=== PATIENT | male | born 1995 | race Caucasian/White ===

== ENCOUNTER → 2017-08-04 | Outpatient (CLI) | payer MEDICAID ==
[2017-08-04 10:52] LABS: Basophils # (A) 0.1 k/uL (0-0.2); Basophils % (A) 1 %; Eosinophils # (A) 0.3 k/uL (0-0.7); Eosinophils % (A) 3 %; HCT 45.1 % (39.0-53.0); HGB 14.8 gm/dL (13.0-17.5); Lymphocytes # (A) 3.2 k/uL (1.0-4.8); Lymphocytes % (A) 34 %; MCH 28.9 pg (25.0-35.0); MCHC 32.8 g/dL (31.0-37.0); MCV 88.1 fL (80.0-100.0); Mean Platelet Volume 7.9; Monocytes # (A) 0.8 k/uL (0-1.0); Monocytes % (A) 8 %; Neutrophils # (A) 4.7 k/uL (1.3-7.7); Neutrophils % (A) 51 %; Platelet Count 344 k/uL (150-450); RBC 5.12 m/uL (4.30-5.90); RDW 14.4 % (11.5-15.5); WBC 9.2 k/uL (3.8-10.6)
[2017-08-04 11:08] LABS: ALT 64 U/L (21-72); AST 34 U/L (17-59); Albumin 4.3 g/dL (3.5-5.0); Alkaline Phosphatase 54 U/L (38-126); Anion Gap 11 mmol/L; Blood Urea Nitrogen 14 mg/dL (9-20); Calcium 9.7 mg/dL (8.4-10.2); Carbon Dioxide 29 mmol/L (22-30); Chloride 106 mmol/L (98-107); Cholesterol 124 mg/dL (<200); Glucose 106 mg/dL (74-99); HDL Cholesterol 39 mg/dL (40-60); LDL Cholesterol,Calculated 69 mg/dL (0-99); Potassium 4.5 mmol/L (3.5-5.1); Sodium 146 mmol/L (137-145); Total Bilirubin 0.4 mg/dL (0.2-1.3); Triglycerides 82 mg/dL (<150)
[2017-08-04 11:24] LABS: T4, Free (Free Thyroxine) 1.46 ng/dL (0.78-2.19)
== END | disposition home or self-care (01) ==
LOC: LABWHC1 10:27
PROVIDERS: ATTEND Internal Medicine
DX: E78.5 Hyperlipidemia, unspecified (principal)
CPT/HCPCS: 36415; 80053; 80061; 84439; 84443; 85025

== ENCOUNTER → 2019-02-16 | Outpatient (CLI) | payer MEDICAID ==
--- NOTE | 2019-02-16 14:29 | CONS ---
CONSULTATION REASON FOR EVALUATION: Sleep apnea. 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 The patient was screen positive for sleep apnea based on A DOT evaluation. DOC examiner sent him to my office for sleep apnea evaluation. The patient works 2 jobs. 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 He goes to be late at around 2 am, wakes up at 7 am in the morning. He feels tired and occasional sleepy. He has never fallen asleep behind the wheel. Never been involved in a motor vehicle accident. His [place] score is at 13. He used to weigh 280 pounds, he has gained a significant amount of weight and was up to 330 and currently is down to 309. Denies having any nocturia no choking or gasping sensation during sleep, no restlessness in the lower extremities. He wakes up tired in the morning. He is a nose breather. PAST MEDICAL HISTORY: Obesity, headaches and bronchial asthma. PAST SURGICAL HISTORY: Includes left knee arthroscopy, hernia repair and tonsillectomy. DRUG ALLERGIES: Not known. OUTPATIENT MEDICATION LIST: Includes Topamax. SOCIAL HISTORY: The patient is a nonsmoker. No history of alcohol. No drugs. FAMILY HISTORY: Father is none, mother has asthma. REVIEW OF SYSTEMS: A 14-point review of system was done. Attention negative unexpected above history of present illness. No insomnia no nocturia no grinding of the teeth. No dry mouth. No anxiety or panic attacks, no palpitation, no heartburn, no restlessness in the lower extremities. no sleep talking. no sweating. no anxiety. no claustrophobia, no sexual dysfunction, no depression. PHYSICAL EXAMINATION: BP is 133/78, pulse 100, respirations 16, temperature 98.4 saturation 97% on room air. Weight is 309 height, 5 feet 11 inches, neck size 18 inches. GENERAL APPEARANCE: Calm, comfortable. HEAD: Atraumatic, normocephalic. NECK: Supple. There is no JVD. No goiter or neck mass. Mallampati class IV. LUNGS: Clear to auscultation. HEART: Sounds regular rate and rhythm. Normal S1, S2. No S3. No murmurs. ABDOMEN: Soft, nontender. No organomegaly. EXTREMITIES: No edema. No cyanosis or clubbing. NEUROLOGIC: Alert and oriented x3. No focal neurological deficits. PSYCHIATRIC: Negative for anxiety or depression. IMPRESSION: 1. Loud snoring. 2. Chronic fatigue and some mild degree of sleepiness, [place] score 13. 3. Obesity with a body mass index of 42.4. 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 5. History of bronchial asthma. 6. History of headache. PLAN: 1. Encourage weight loss. 2. 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 He will need a polysomnogram to rule out obstructive sleep apnea. Especially, if the patient has the typical anatomic features. Will continue to follow and make further recommendations depending on the sleep study results and will treat accordingly, if needed. MMODL / IJN: [id number] /
== END | disposition home or self-care (01) ==
LOC: SLEEP 13:22
PROVIDERS: ATTEND Internal Medicine Critical Care Medicine
DX: R06.83 Snoring (principal); R53.82 Chronic fatigue, unspecified; E66.9 Obesity, unspecified; Z68.41 Body mass index [BMI] 40.0-44.9, adult; Z87.09 Personal history of other diseases of the respiratory system; Z86.69 Personal history of other diseases of the nervous system and sense organs; Z79.899 Other long term (current) drug therapy
CPT/HCPCS: 99211

== ENCOUNTER → 2019-03-02 | Outpatient (CLI) | payer MEDICAID ==
--- NOTE | 2019-03-02 13:47 | MR ---
EXAMINATION TYPE: MR knee RT wo con DATE OF EXAM: 03/02/2019 COMPARISON: NONE HISTORY: Pain in R knee and medial meniscal tear prior. TECHNIQUE: Multiplanar, multisequence images of the knee is performed without IV contrast. FINDINGS: MEDIAL MENISCUS: Anterior and posterior horns are intact without tear. LATERAL MENISCUS: Anterior and posterior horns are intact without tear. CRUCIATE LIGAMENTS: The anterior and posterior cruciate ligaments are intact and unremarkable. COLLATERAL LIGAMENTS: The medial collateral ligament and lateral collateral ligament complex are inta ct and unremarkable. EXTENSOR MECHANISM: Visualized quadriceps and patellar tendons are intact. EFFUSION: No significant suprapatellar joint effusion. POPLITEAL CYST: No popliteal/wilkerson cyst. TRICOMPARTMENT SPACES: Tricompartment joint spaces are preserved. No significant spurring is seen. CARTILAGE: Tricompartment articular cartilage is maintained. BONE MARROW SIGNAL: No focal abnormal marrow signal is appreciated. OTHER: No additional significant abnormality is appreciated. IMPRESSION: No meniscal or ligamentous tear is seen. Unremarkable study.
== END | disposition home or self-care (01) ==
LOC: RADMRIMAIN 06:55
PROVIDERS: ATTEND Orthopaedic Surgery
DX: S83.241A Other tear of medial meniscus, current injury, right knee, initial encounter (principal)

== ENCOUNTER → 2019-05-11 | Outpatient (CLI) | payer MEDICAID ==
--- NOTE | 2019-05-11 18:53 | PN ---
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 The patient was diagnosed having obstructive sleep apnea, and based on his sleep study the patient was found to have an AHI of 13 and the disease was worse during REM. His AHI during REM was 73. He also demonstrated mild nocturnal oxygen desaturation. His sleep study showed increased sleep efficiency on the order of 99%, indicating insufficient sleep syndrome. He is obese and currently is using his CPAP unit. He got his CPAP unit 29 days ago and he has used the CPAP only / days. He has achieved more than 4 hours less than 50% of the time. He is averaging around 4.4 hours of CPAP use per night. While being used, the AHI is down to 0.8. He feels improved. He feels better, especially on the nights that he has been able to maintain the treatment. He tells me that the tubing and mask connection are loose, and on several occasions this got disconnected, affecting his ability to maintain the treatment. For that reason he is looking for a different mask which is more solid and does not get disconnected overnight. He is committed to the treatment. I asked him to come back in 2 weeks' time to have re-evaluation, hoping that within 2 weeks' time he should be able to achieve compliancy. REVIEW OF SYSTEMS: Fourteen-point review of systems was done. The patient is feeling better; less somnolent and sleepy during the day. [place] score is down to 1. PHYSICAL EXAMINATION: VITAL SIGNS: BP is 128/77, pulse 99, respirations 14. Temperature is 97.5. [place] score is down to 1. Saturation 98% on room air. Weight is 310. GENERAL APPEARANCE: Calm, comfortable. HEAD: Atraumatic, normocephalic. NECK: Supple. There is no JVD. No goiter or neck mass. Mallampati class IV. LUNGS: Clear to auscultation. HEART: Heart sounds are regular rate and rhythm. Normal S1, S2. No S3, S4. No murmurs. ABDOMEN: Soft, nontender. No organomegaly. EXTREMITIES: No edema. No cyanosis or clubbing. NEUROLOGIC: Awake and alert. There are no focal neurological deficits. PSYCHIATRIC: Negative for anxiety or depression. IMPRESSION: 1. Symptomatic obstructive sleep apnea. Based on the patient's sleep study, the patient has a component of mild obstructive sleep apnea with an AHI of 13, worse during REM sleep. The patient is currently undergoing CPAP therapy at a pressure of 12 cm of water. Compliance has not been achieved yet. 2. Hypersomnia, improved significantly while on CPAP therapy. The patient's [place] score is down to 1. 3. Morbid obesity with a body mass index of 43. 4. Chronic hypersomnia and sleepiness. 5. Chronic headaches. 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 PLAN: 1. Will offer the patient a new Simplus full-face mask that hopefully will not get disconnected overnight. I also gave him another sample of AirVasoGenix F20 full-face mask medium size, and the patient will try both and let me know if this is something he would like to use in the future. 2. Encourage weight loss. 3. I think he will achieve compliance within the 2 weeks. He was counseled in that regard, and the patient was asked to come back to see me in 2 weeks' time to decide if he is compliant and if he is successfully treated. At that point, his paperwork will be filled for him regarding his DOT certification. MMANDREWL / JAMESN: [id number] /
== END | disposition home or self-care (01) ==
LOC: SLEEP 16:14
PROVIDERS: ATTEND Internal Medicine Critical Care Medicine
DX: G47.33 Obstructive sleep apnea (adult) (pediatric) (principal); E66.01 Morbid (severe) obesity due to excess calories; R51 Headache; Z68.41 Body mass index [BMI] 40.0-44.9, adult

== ENCOUNTER → 2019-05-25 | Outpatient (CLI) | payer MEDICAID ==
--- NOTE | 2019-05-25 17:33 | PN ---
PROGRESS NOTE This patient is 24, with a diagnosis of obstructive sleep apnea. He is trying to achieve compliancy on CPAP therapy to have his DOT certification renewed. 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 He is trying his best to achieve 70% compliancy for more than 4 hours. I checked the data over the past 30 days and I noticed that the patient is doing better, averaging around 5 hours per night, yet his CPAP use for more than 4 hours is just above 50%. As such, this will not be accepted by the DOT examiner. I wanted him to put more hours on his CPAP unit to achieve adequate compliancy. Based on today's data, I am unable to sign off on his papers. The patient tells me that he has a very busy schedule and different jobs and he is called in all the time and he is unable to achieve these numbers with ease; however, he is going to try to do his best. He understands that he has to achieve at least 70% of the time with CPAP use for more than 4 hours. No other complaints otherwise for now. The pressure setting will be kept unchanged. The patient is currently utilizing a Simplus full-face mask. No significant weight loss or weight gain over the past few weeks. No other new complaints otherwise for now. PHYSICAL EXAMINATION: VITAL SIGNS: BP is 143/74, pulse 88, respirations 14, temperature 97.7, saturation 98% on room air. BMI is 43. Height is 5 feet 11 inches. Weight is 314. GENERAL APPEARANCE: Calm, comfortable. HEAD: Atraumatic, normocephalic. NECK: Supple. No JVD. No goiter or neck masses. LUNGS: Clear to auscultation. HEART: Heart sounds are regular rate and rhythm. Normal S1, S2. No S3, S4. No murmurs. ABDOMEN: Soft, nontender. No organomegaly. EXTREMITIES: No edema. No cyanosis or clubbing. NEUROLOGIC: Alert and oriented x3. No focal neurological deficits. IMPRESSION: 1. Symptomatic obstructive sleep apnea, currently on a CPAP pressure of 12 cm of water. Gradually improving his compliancy, trying to achieve at least 70% of the time with CPAP use of more than 4 hours. 2. Chronic hypersomnia, improving. 3. Obesity. 4. Chronic headaches, improving. 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 PLAN: I counseled the patient on the use of CPAP therapy. Unable to give his DOT certification clearance yet. He needs to achieve more than 4 hours of CPAP use 70% of the time, and he is aware of that. Encourage weight loss. I am hoping this will be achieved over the next few weeks. Will continue to follow. SAM / SILVANA: [id number] /
== END | disposition home or self-care (01) ==
LOC: SLEEP 13:04
PROVIDERS: ATTEND Internal Medicine Critical Care Medicine
DX: G47.33 Obstructive sleep apnea (adult) (pediatric) (principal); E66.9 Obesity, unspecified; R51 Headache; Z99.89 Dependence on other enabling machines and devices

== ENCOUNTER → 2020-06-27 | Outpatient (CLI) | payer MEDICAID ==
--- NOTE | 2020-06-27 12:55 | PN ---
PROGRESS NOTE Jose Miguel is 25. 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 He is carrying boxes from between [place] and [place]. He works around 6 to 7 hours a day and he drives 100 miles on a daily basis. He has not fallen asleep. His last DOT certification was given to him a year ago and he has got an upcoming renewal next August. I noted that the patient's compliancy has not been the best. His compliancy typically improves prior to his DOT certification renewal. The patient states that the CPAP machine does not give him any benefit. While on or off the treatment, the patient feels the same and the patient does not have any major hypersomnia or sleepiness during the day. He is not snoring a whole lot. He did lower his CPAP pressure down to 5 cm of water and based on the compliance data, the patient's AHI is down to 0.5 while on treatment. Nevertheless, the number of hours being utilized on the machine is minimal at this point and its in the order of 3.7 hours and the patient has used his machine 6 out of the past 30 days. Leaks in the order of 6 L per minute. It seems that a lower pressure is also effective in this patient's treatment and I am wondering whether he does have ongoing issues with obstructive sleep apnea. His previous AHI is at 12 consistent with mild disease. No recent weight gain or weight loss. REVIEW OF SYSTEMS: No major hypersomnia or sleepiness during the day. Occasional snoring. No substance abuse. No history of any motor vehicle accident because of feeling drowsy or sleepy. The patient has not been involved in a motor vehicle accident or a car accident. No anxiety. No depression. No panic attacks. No insomnia. No choking or gasping sensation. No grinding of the teeth. No restlessness of lower extremities. PHYSICAL EXAMINATION: CURRENT VITAL SIGNS: His blood pressure is 152/89, pulse 90, respirations 16, temperature 97.4, saturation 97% on room air. Height 6 feet, weight 315, BMI 42.7. GENERAL APPEARANCE: Calm, comfortable. HEAD: Atraumatic, normocephalic. NECK: Supple. There is no JVD. No goiter or neck masses. LUNGS: Clear to auscultation. HEART: Heart sounds are regular rate and rhythm. Normal S1, S2. No murmurs. ABDOMEN: Soft, nontender. No organomegaly. EXTREMITIES: No edema. No cyanosis or clubbing. IMPRESSION: 1. Mild obstructive sleep apnea, AHI of 12. The patient has not seen any benefit while on or off the treatment. For that reason, his compliancy has varied over the years. He tries to become more compliant prior to his DOT certification renewal typically. He has lowered the CPAP pressure down to 5 cm of water and based on his compliance data, his AHI has been less than 5. 2. Obesity. 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 PLAN: I am going to repeat a home sleep study on this patient. This will be needed to re- establish the present severity of obstructive sleep apnea. During this time the patient is going to try to lose weight and implement good sleep hygiene measures. If his AHI is less than 5, CPAP therapy will be discontinued. Otherwise, he will need to be more compliant for his DOT certification to be renewed. We will continue to follow. SAM / SILVANA: [id number] /
== END | disposition home or self-care (01) ==
LOC: SLEEP 10:33
PROVIDERS: ATTEND Internal Medicine Critical Care Medicine
DX: G47.33 Obstructive sleep apnea (adult) (pediatric) (principal); E66.9 Obesity, unspecified; Z99.89 Dependence on other enabling machines and devices